=== PATIENT | male | born 1965 ===

== ENCOUNTER 2023-10-16 14:05 | Inpatient (IN) | payer OTHER ==
[2023-10-16] MEDS: SODIUM CHLORIDE 0.9% 1,000 ML IV ONE ×2 (14:26→16:10)
[2023-10-16] MEDS: SODIUM CHLORIDE 0.9% 500 ML 500 ML IV ONE (14:26)
--- NOTE | 2023-10-16 14:33 | ED ---
General Adult HPI - General Chief complaint: Alcohol Stated complaint: ETOH Time Seen by Provider: 10/16/23 14:10 Source: patient, RN notes reviewed, old records reviewed Mode of arrival: EMS Limitations: no limitations - History of Present Illness Initial comments: This is a 58-year-old male who presents to the emergency department stating that he fell off the wagon and started drinking again. Patient states his last drink was just before he came here. Patient states he started drinking again because his father and it really upset him. Patient states he would like help to stop drinking. Patient denies any chest pain difficulty breathing shortness of breath. Patient has any recent fever chills or cough. Patient [place] any abdominal pain patient has nausea vomiting or diarrhea. - Related Data Allergies Allergy/AdvReac Type Severity Reaction Status Date / Time No Known Allergies Allergy Verified 10/16/23 14:16 Review of Systems ROS Statement: Those systems with pertinent positive or pertinent negative responses have been documented in the HPI. ROS Other: All systems not noted in ROS Statement are negative. 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 Additional Past Surgical History / Comment(s): Hip surgery as a child. Past Psychological History: Depression Smoking Status: Never smoker Past Alcohol Use History: Daily, Heavy Past Drug Use History: None Reported General Exam - General Exam Comments Initial Comments: GENERAL: Patient is well-developed and well-nourished. Patient is nontoxic and well- hydrated and is in no acute distress. Patient does appear intoxicated ENT: Neck is soft and supple. No significant lymphadenopathy is noted. Oropharynx is clear. Moist mucous membranes. Neck has full range of motion without eliciting any pain. EYES: The sclera were anicteric and conjunctiva were pink and moist. Extraocular movements were intact and pupils were equal round and reactive to light. Eyelids were unremarkable. PULMONARY: Unlabored respirations. Good breath sounds bilaterally. No audible rales rhonchi or wheezing was noted. CARDIOVASCULAR: There is a regular rate and rhythm without any murmurs gallops or rubs. ABDOMEN: Soft and nontender with normal bowel sounds. SKIN: Skin is clear with no lesions or rashes and otherwise unremarkable. NEUROLOGIC: Patient is alert and oriented x3. Cranial nerves II through XII are grossly intact. Motor and sensory are also intact. Normal speech, volume and content. Symmetrical smile. MUSCULOSKELETAL: Normal extremities with adequate strength and full range of motion. LYMPHATICS: No significant lymphadenopathy is noted PSYCHIATRIC: Normal psychiatric evaluation. Limitations: no limitations Course Vital Signs 10/16/23 14:08 Temperature 98 F Respiratory 18 Rate Blood Pressure 158/83 O2 Sat by Pulse 98 Oximetry Medical Decision Making - Medical Decision Making Was pt. sent in by a medical professional or institution (, [facility], DIRECTOR DECISION SUPPORT, urgent care, hospital, or penitentiary...) When possible be specific @ -No Did you speak to anyone other than the patient for history (EMS, parent, family, police, friend...)? What history was obtained from this source @ -No Did you review nursing and triage notes (agree or disagree)? Why? @ -I reviewed and agree with nursing and triage notes Were old charts reviewed (outside hosp., previous admission, EMS record, old EKG, old radiological studies, urgent care reports/EKG's, penitentiary records)? Report findings @ -No old charts were reviewed Differential Diagnosis? @ -Alcohol abuse, alcohol withdrawal, alcohol intoxication, this is not an all- inclusive list EKG interpreted by me (3pts min.). @ -As above X-rays interpreted by me (1pt min.). @ -None done CT interpreted by me (1pt min.). @ -None done U/S interpreted by me (1pt. min.). @ -None done What testing was considered but not performed or refused? (CT, X-rays, U/S, labs)? Why? @ -None What meds were considered but not given or refused? Why? @ -None Did you discuss the management of the patient with other professionals (professionals i.e. , CYRIL, DIRECTOR DECISION SUPPORT, lab, RT, psych nurse, social worker school, lens grinder rough, teacher, medical scientific officer, case consultant)? Give summary @ -Sound physicians agreed to admit the patient Was smoking cessation discussed for >3mins.? @ -No Was critical care preformed (if so, how long)? @ -No Were there social determinants of health that impacted care today? How? (Homelessness, low income, unemployed, alcoholism, drug addiction, transportation, low edu. Level, literacy, decrease access to med. care, fdc, rehab)? @ -No Was there de-escalation of care discussed even if they declined (Discuss DNR or withdrawal of care, Hospice)? DNR status @ -No What co-morbidities impacted this encounter? (DM, HTN, Smoking, COPD, CAD, Cancer, CVA, ARF, Chemo, Hep., AIDS, mental health diagnosis, sleep apnea, morbid obesity)? @ -None Was patient admitted / discharged? Hospital course, mention meds given and route, prescriptions, significant lab abnormalities, going to OR and other pertinent info. @ -Patient was lower magnesium so I replaced it with 1 g of mag sulfate. Patient was intoxicated and will be admitted to [facility] physicians whom I spoke with. I wrote admitting orders Undiagnosed new problem with uncertain prognosis? @ -No Drug Therapy requiring intensive monitoring for toxicity (Heparin, Nitro, Ins ulin, Cardizem)? @ -No Were any procedures done? @ -No Diagnosis/symptom? @ -Alcohol intoxication Acute, or Chronic, or Acute on Chronic? @ -Acute Uncomplicated (without systemic symptoms) or Complicated (systemic symptoms)? @ -Complicated Side effects of treatment? @ -No Exacerbation, Progression, or Severe Exacerbation? @ -No Poses a threat to life or bodily function? How? (Chest pain, USA, CO, pneumonia, PE, COPD, DKA, ARF, appy, cholecystitis, CVA, Diverticulitis, Homicidal, Suicidal, threat to staff... and all critical care pts) @ -No - Lab Data Result diagrams: 10/16/23 14:22 10/16/23 14:22 Lab Results 10/16/23 10/16/23 Range/Units 14:22 14:22 WBC 7.4 (3.8-10.6) k/uL RBC 5.18 (4.30-5.90) m/uL Hgb 15.8 (13.0-17.5) gm/dL Hct 44.4 (39.0-53.0) % MCV 85.9 (80.0-100.0) fL MCH 30.6 (25.0-35.0) pg MCHC 35.6 (31.0-37.0) g/dL RDW 14.2 (11.5-15.5) % Plt Count 191 (150-450) k/uL MPV 10.6 Neutrophils % 71 % Lymphocytes % 21 % Monocytes % 5 % Eosinophils % 1 % Basophils % 1 % Neutrophils # 5.2 (1.3-7.7) k/uL Lymphocytes # 1.6 (1.0-4.8) k/uL Monocytes # 0.4 (0-1.0) k/uL Eosinophils # 0.0 (0-0.7) k/uL Basophils # 0.1 (0-0.2) k/uL Sodium 133 L (137-145) mmol/L Potassium 4.3 (3.5-5.1) mmol/L Chloride 96 L (98-107) mmol/L Carbon Dioxide 15 L (22-30) mmol/L Anion Gap 22 mmol/L BUN 8 L (9-20) mg/dL Creatinine 0.71 (0.66-1.25) mg/dL Est GFR (CKD-EPI)AfAm >90 (>60 ml/min/1.73 sqM) Est GFR (CKD-EPI)NonAf >90 (>60 ml/min/1.73 sqM) Glucose 78 (74-99) mg/dL Calcium 8.6 (8.4-10.2) mg/dL Magnesium 1.5 L (1.6-2.3) mg/dL Total Bilirubin 0.9 (0.2-1.3) mg/dL AST 83 H (17-59) U/L ALT 88 H (4-49) U/L Alkaline Phosphatase 68 (38-126) U/L Total Protein 7.7 (6.3-8.2) g/dL Albumin 4.8 (3.5-5.0) g/dL Serum Alcohol 334 H* mg/dL Disposition Clinical Impression: Alcoholic intoxication, Hypomagnesemia Disposition: ADMITTED IP TO THIS HOSP Referrals: None,Stated [Primary Care Provider] - 1-2 days Time of Disposition: 15:25
[2023-10-16 14:44] LABS: ALT 88 U/L (4-49); AST 83 U/L (17-59); African American GFR (CKD) >90 (>60 ml/min/1.73 sqM); Albumin 4.8 g/dL (3.5-5.0); Alkaline Phosphatase 68 U/L (38-126); Anion Gap 22 mmol/L; Blood Urea Nitrogen 8 mg/dL (9-20); Calcium 8.6 mg/dL (8.4-10.2); Carbon Dioxide 15 mmol/L (22-30); Chloride 96 mmol/L (98-107); Glucose 78 mg/dL (74-99); Magnesium 1.5 mg/dL (1.6-2.3); Non-African American GFR(CKD) >90 (>60 ml/min/1.73 sqM); Potassium 4.3 mmol/L (3.5-5.1); Sodium 133 mmol/L (137-145); Total Bilirubin 0.9 mg/dL (0.2-1.3); Total Protein 7.7 g/dL (6.3-8.2)
[2023-10-16 15:00] LABS: Alcohol 334 mg/dL
[2023-10-16 15:04] LABS: Basophils # (A) 0.1 k/uL (0-0.2); Basophils % (A) 1 %; Eosinophils % (A) 1 %; HCT 44.4 % (39.0-53.0); HGB 15.8 gm/dL (13.0-17.5); Lymphocytes # (A) 1.6 k/uL (1.0-4.8); Lymphocytes % (A) 21 %; MCH 30.6 pg (25.0-35.0); MCHC 35.6 g/dL (31.0-37.0); MCV 85.9 fL (80.0-100.0); Mean Platelet Volume 10.6; Monocytes # (A) 0.4 k/uL (0-1.0); Monocytes % (A) 5 %; Neutrophils # (A) 5.2 k/uL (1.3-7.7); Neutrophils % (A) 71 %; Platelet Count 191 k/uL (150-450); RBC 5.18 m/uL (4.30-5.90); RDW 14.2 % (11.5-15.5); WBC 7.4 k/uL (3.8-10.6)
[2023-10-16] MEDS: MAGNESIUM SULFATE-D5W PMX 1 GM in DEXTROSE/WATER 1 100ML.BAG IVPB ONE (16:10)
[2023-10-16] MEDS ORDERED: LORazepam 2 MG/ML INJ IV PRN (16:28)
[2023-10-16] MEDS: LORazepam 2 MG/ML INJ IV PRN ×2 (16:37→19:59)
--- NOTE | 2023-10-16 17:07 | P.HPIM ---
History of Present Illness H&P Date: 10/16/23 History of Presenting Illness: Patient is a 58-year-old male with a past medical history of alcoholism with history of ICU stays due to DTs, alcohol withdrawal seizures, and depression. He reports longstanding history of alcoholism and was sober but states his father on 10/08/2023 and he has since "fallen off the wagon" and has been drinking heavily every day. Patient reports drinking a minimum of 2 pints of whiskey daily along with 4 to 5 (24 ounce) cans of beer daily. Patient reports he knows he needs to stop, but states he is also aware of his history of previous ICU stays and alcohol withdrawal seizures and knows that he cannot stop on his own, so he came to the hospital for assistance with medical detox. Patient denies having any recent falls or injuries, headache, lightheadedness, dizziness, chest pain, palpitations, shortness of breath, cough or congestion, nausea, vomiting, abdominal pain, or experiencing any numbness/tingling/weakness/swelling in his extremities. Patient reports using chewing tobacco but denies smoking cigarettes, vaping, or any drug use. On arrival to our facility, patient underwent evaluation in the emergency departm ent. Vital signs upon arrival show blood pressure 158/83, heart rate 98, respiratory rate 18, temp 98.0 F, and SpO2 of 98% on room air. Labs completed and reviewed. CBC unremarkable. BMP showing hyponatremia with sodium of 133, hypochloremia with chloride of 96, and hypocarbia with bicarb of 22 and elevated anion gap of 22. Magnesium was low at 1.5. Liver profile showing elevated AST of 83 and ALT of 88. Blood alcohol level was 334. Patient admitted under our services for alcohol intoxication and assistance with medical detox. Review of systems: Pertinent positives and negatives as discussed in HPI, a complete review of systems was performed and all other systems are negative. Physical exam: Vital signs reviewed and stable. General: Nontoxic, no distress and appears stated age. Derm: Skin warm and dry, normal coloration for ethnicity. Head: Atraumatic, normocephalic and symmetric. Eyes: EOMs intact, no lid lag, and anicteric sclera Mouth: no lip lesions, mucus membranes moist Cardiovascular: regular rate and rhythm with normal S1S2, no murmur, positive posterior tibial pulses bilaterally, and cap refill < 2 seconds. Lungs: Respirations even, regular, and unlabored on room air. Lungs CTA bilaterally, no rhonchi, no rales, no wheezing, and no accessory muscle usage. Abdominal: soft, nontender to palpation, no guarding, no appreciable organomegaly Ext: ROM intact. No gross muscle atrophy, no edema, no contractures Neuro: Speech clear, face symmetrical and CN II-XII grossly intact with no noted focal neuro deficits Psych: Alert and oriented to person, place, time, and situation. Appropriate and pleasant affect. Assessment and Plan of Care: Alcohol intoxication with history of alcoholism History of alcohol withdrawal seizures and DTs Hypomagnesemia, secondary to alcohol abuse Elevated liver enzymes, secondary to alcohol abuse -Order placed for monitoring of CIWA scores and patient to be medicated with Ativan 0.5 mg every 4 hours as needed for CIWA score of 4-5, Ativan 1 mg every 4 hours for CIWA score of 6-7, Ativan 2 mg every 3 hours CIWA score of 8-9, and Ativan 2 mg every 2 hours forr CIWA score of 10 or greater. -Continuous IV hydration. -Thiamine 100 mg daily, and Multivitamin daily, and Folate 1 mg daily -Seizure, fall, aspiration, and elopement precautions in place. -Urine drug screen -Continued close monitoring of electrolytes and replace as needed. -Telemetry monitoring. Data and imaging reviewed: As stated above in HPI CODE STATUS: Full code DVT prophylaxis: Lovenox Anticipated discharge date: Pending clinical course Anticipated discharge place: Home Patient was seen independently by Nurse Practitioner. This document was prepared using [employer] dictation software. Please allow for errors in borderer while rare they do occur. Hiram Sprague NP rendered care for this patient independently, reviewed the findings and plan as documented in the note above. I did not physically speak with or examine the patient on this date. 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 Additional Past Surgical History / Comment(s): Hip surgery as a child. Past Psychological History: Depression Smoking Status: Never smoker Past Alcohol Use History: Daily, Heavy Past Drug Use History: None Reported - Past Family History Father Additional Family Medical History / Comment(s): CHF Medications and Allergies Home Medications Medication Instructions Recorded Confirmed Type No Known Home Medications 10/16/23 10/16/23 History Allergies Allergy/AdvReac Type Severity Reaction Status Date / Time No Known Allergies Allergy Verified 10/16/23 15:35 Physical Exam Vitals: Vital Signs Temp Resp BP Pulse Ox 10/16/23 14:08 98 F 18 158/83 98 Intake and Output 10/16/23 10/16/23 10/16/23 06:59 14:59 22:59 Other: Weight 77.111 kg Results CBC & Chem 7: 10/17/23 07:08 10/17/23 07:08 Labs: Abnormal Lab Results - Last 24 Hours (Table) 10/16/23 Range/Units 14:22 Sodium 133 L (137-145) mmol/L Chloride 96 L (98-107) mmol/L Carbon Dioxide 15 L (22-30) mmol/L BUN 8 L (9-20) mg/dL Magnesium 1.5 L (1.6-2.3) mg/dL AST 83 H (17-59) U/L ALT 88 H (4-49) U/L Serum Alcohol 334 H* mg/dL
[2023-10-16] MEDS: MAGNESIUM SULFATE-D5W PMX 1 GM in DEXTROSE/WATER 1 100ML.BAG IVPB SCH (17:09)
[2023-10-16] MEDS: THIAMINE 100 MG/ML 2 ML VIAL IM STA (18:34)
[2023-10-16] MEDS: LORazepam 0.5 MG TAB PO PRN (22:51)
[2023-10-17] MEDS: CALCIUM CARBONATE 500 MG CHEWABLE PO PRN (03:30)
[2023-10-17] MEDS: FOLIC ACID 1 MG TAB PO SCH (10:15)
[2023-10-17] MEDS: MULTIVITAMINS, THERA 1 EACH TAB PO SCH (10:15)
[2023-10-17] MEDS: ENOXAPARIN 40 MG/0.4 ML SYRINGE SQ SCH (10:16)
[2023-10-17] MEDS: THIAMINE 100 MG TAB PO SCH (10:16)
[2023-10-17 10:17] LABS: HCT 41.8 % (39.6-50.0); HGB 14.4 g/dL (13.0-17.0); MCH 29.6 pg (27.0-32.0); MCHC 34.4 g/dL (32.0-37.0); Mean Platelet Volume 11.9 FL (9.5-12.2); NRBC Per 100 WBC 0 X 10*3/uL (0.00-0.01); Platelet Count 164 X 10*3/uL (140-440); RBC 4.86 X 10*6/uL (4.40-5.60); RDW 13.9 % (11.5-14.5); WBC 7.97 X 10*3/uL (4.50-10.00)
[2023-10-17 10:29] LABS: ALT 80 U/L (10-49); AST 59 U/L (14-35); Albumin 4.2 g/dL (3.8-4.9); Albumin/Globulin Ratio 1.75 Ratio (1.60-3.17); Alkaline Phosphatase 67 U/L (41-126); Blood Urea Nitrogen 10.4 mg/dL (9.0-27.0); Calcium 8.3 mg/dL (8.7-10.3); Carbon Dioxide 22.2 mmol/L (21.6-31.8); Chloride 103 mmol/L (96-109); Globulin 2.4 g/dL (1.6-3.3); Glucose 94 mg/dL (70-110); Magnesium 2.1 mg/dL (1.5-2.4); Potassium 4.1 mmol/L (3.5-5.5); Sodium 140 mmol/L (135-145); Total Bilirubin 0.9 mg/dL (0.3-1.2); Total Protein 6.6 g/dL (6.2-8.2)
--- NOTE | 2023-10-17 13:58 | P.PN ---
Subjective Progress Note Date: 10/17/23 Hospital course:: Patient is a 58-year-old male with a past medical history of alcoholism with history of ICU stays due to DTs, alcohol withdrawal seizures, and depression. He reports longstanding history of alcoholism and was sober but states his father on 10/08/2023 and he has since "fallen off the wagon" and has been drinking heavily every day. Patient reports drinking a minimum of 2 pints of whiskey daily along with 4 to 5 (24 ounce) cans of beer daily. Patient r eports he knows he needs to stop, but states he is also aware of his history of previous ICU stays and alcohol withdrawal seizures and knows that he cannot stop on his own, so he came to the hospital for assistance with medical detox. Patient denies having any recent falls or injuries, headache, lightheadedness, dizziness, chest pain, palpitations, shortness of breath, cough or congestion, nausea, vomiting, abdominal pain, or experiencing any numbness/tingling/weakness/swelling in his extremities. Patient reports using chewing tobacco but denies smoking cigarettes, vaping, or any drug use. On arrival to our facility, patient underwent evaluation in the emergency department. Vital signs upon arrival show blood pressure 158/83, heart rate 98, respiratory rate 18, temp 98.0 F, and SpO2 of 98% on room air. Labs completed and reviewed. CBC unremarkable. BMP showing hyponatremia with sodium of 133, hypochloremia with chloride of 96, and hypocarbia with bicarb of 22 and elevated anion gap of 22. Magnesium was low at 1.5. Liver profile showing elevated AST of 83 and ALT of 88. Blood alcohol level was 334. Patient admitted under our services for alcohol intoxication and assistance with medical detox. Physical exam: Patient seen and fully evaluated at bedside this morning. He was mildly tremulous upon examination reports a mild headache. Vital signs reviewed and stable. General: Nontoxic, no distress and appears stated age. Derm: Skin warm and dry, normal coloration for ethnicity. Head: Atraumatic, normocephalic and symmetric. Eyes: EOMs intact, no lid lag, and anicteric sclera Mouth: no lip lesions, mucus membranes moist Cardiovascular: regular rate and rhythm with normal S1S2, no murmur, positive posterior tibial pulses bilaterally, and cap refill < 2 seconds. Lungs: Respirations even, regular, and unlabored on room air. Lungs CTA bilaterally, no rhonchi, no rales, no wheezing, and no accessory muscle usage. Abdominal: soft, nontender to palpation, no guarding, no appreciable organomegaly Ext: ROM intact. No gross muscle atrophy, no edema, no contractures Neuro: Speech clear, face symmetrical and CN II-XII grossly intact with no noted focal neuro deficits Psych: Alert and oriented to person, place, time, and situation. Appropriate and pleasant affect. Assessment and Plan of Care: Alcohol intoxication with history of alcoholism History of alcohol withdrawal seizures and DTs Hypomagnesemia, secondary to alcohol abuse Elevated liver enzymes, secondary to alcohol abuse -Continue monitoring of CIWA scores and patient to be medicated with Ativan 0.5 mg every 4 hours as needed for CIWA score of 4-5, Ativan 1 mg every 4 hours for CIWA score of 6-7, Ativan 2 mg every 3 hours CIWA score of 8-9, and Ativan 2 mg every 2 hours forr CIWA score of 10 or greater. Current CIWA score is 10. He has received a total of 5.5 mg of Ativan overnight. -Continue IV hydration. -Thiamine 100 mg daily, and Multivitamin daily, and Folate 1 mg daily -Seizure, fall, aspiration, and elopement precautions in place. -Urine drug screen -Continued close monitoring of electrolytes and replace as needed. -Telemetry monitoring. Data and imaging reviewed: CIWA score is 10. Morning labs reviewed. CBC unremarkable. BMP showing mildly elevated anion gap of 14.80 otherwise normal findings. Magnesium 2.1. Liver profile showing elevated AST of 59 and ALT of 80. Vital signs reviewed. Blood pressure 143/78, heart rate 58, respiratory rate 19, temp 98.5 F, and SpO2 of 93% on room air. CODE STATUS: Full code DVT prophylaxis: Lovenox Anticipated discharge date: Pending clinical course Anticipated discharge place: Home Patient was seen independently by Nurse Practitioner. This document was prepared using [employer] dictation software. Please allow for errors in apparel sales associate while rare they do occur. Hiram Sprague NP rendered care for this patient independently, reviewed the findings and plan as documented in the note above. I did not physically speak with or examine the patient on this date. Objective - Vital Signs Vital signs: Vital Signs Temp 98.7 F 07/05/24 01:30 Pulse 91 10/17/23 01:30 Resp 16 10/17/23 01:30 BP 178/66 10/17/23 01:30 Pulse Ox 93 L 10/17/23 01:30 FiO2 Intake & Output 10/16/23 10/17/23 10/17/23 18:59 06:59 18:59 Output Total 900 Balance -900 Weight 77.111 kg 77.111 kg Output: Urine 900 Other: Voiding Method Toilet Urinal - Labs CBC & Chem 7: 10/17/23 07:08 10/17/23 07:08 Labs: Abnormal Lab Results - Last 24 Hours (Table) 10/16/23 Range/Units 14:22 Sodium 133 L (137-145) mmol/L Chloride 96 L (98-107) mmol/L Carbon Dioxide 15 L (22-30) mmol/L BUN 8 L (9-20) mg/dL Magnesium 1.5 L (1.6-2.3) mg/dL AST 83 H (17-59) U/L ALT 88 H (4-49) U/L Serum Alcohol 334 H* mg/dL
[2023-10-17] MEDS: LORazepam 1 MG TAB PO PRN ×2 (14:50→20:28)
[2023-10-18] MEDS: KETOROLAC 15 MG/ML 1 ML VIAL IVP STA (10:23)
--- NOTE | 2023-10-18 17:08 | P.PN ---
Subjective Progress Note Date: 10/18/23 Hospital course:: Patient is a 58-year-old male with a past medical history of alcoholism with history of ICU stays due to DTs, alcohol withdrawal seizures, and depression. He reports longstanding history of alcoholism and was sober but states his father on 10/08/2023 and he has since "fallen off the wagon" and has been drinking heavily every day. Patient reports drinking a minimum of 2 pints of whiskey daily along with 4 to 5 (24 ounce) cans of beer daily. Patient r eports he knows he needs to stop, but states he is also aware of his history of previous ICU stays and alcohol withdrawal seizures and knows that he cannot stop on his own, so he came to the hospital for assistance with medical detox. Patient denies having any recent falls or injuries, headache, lightheadedness, dizziness, chest pain, palpitations, shortness of breath, cough or congestion, nausea, vomiting, abdominal pain, or experiencing any numbness/tingling/weakness/swelling in his extremities. Patient reports using chewing tobacco but denies smoking cigarettes, vaping, or any drug use. On arrival to our facility, patient underwent evaluation in the emergency department. Vital signs upon arrival show blood pressure 158/83, heart rate 98, respiratory rate 18, temp 98.0 F, and SpO2 of 98% on room air. Labs completed and reviewed. CBC unremarkable. BMP showing hyponatremia with sodium of 133, hypochloremia with chloride of 96, and hypocarbia with bicarb of 22 and elevated anion gap of 22. Magnesium was low at 1.5. Liver profile showing elevated AST of 83 and ALT of 88. Blood alcohol level was 334. Patient admitted under our services for alcohol intoxication and assistance with medical detox. Physical exam: Patient seen and fully evaluated at bedside this morning. He was mildly tremulous and diaphoretic at time of examination. Tremors seem to have improved but still present. Patient denies headache this morning and denies any other complaints at this time. Vital signs reviewed and stable. General: Nontoxic, no distress and appears stated age. Derm: Skin warm and dry, normal coloration for ethnicity. Head: Atraumatic, normocephalic and symmetric. Eyes: EOMs intact, no lid lag, and anicteric sclera Mouth: no lip lesions, mucus membranes moist Cardiovascular: regular rate and rhythm with normal S1S2, no murmur, positive posterior tibial pulses bilaterally, and cap refill < 2 seconds. Lungs: Respirations even, regular, and unlabored on room air. Lungs CTA bilaterally, no rhonchi, no rales, no wheezing, and no accessory muscle usage. Abdominal: soft, nontender to palpation, no guarding, no appreciable organomegaly Ext: ROM intact. No gross muscle atrophy, no edema, no contractures Neuro: Speech clear, face symmetrical and CN II-XII grossly intact with no noted focal neuro deficits Psych: Alert and oriented to person, place, time, and situation. Appropriate and pleasant affect. Assessment and Plan of Care: Alcohol intoxication with history of alcoholism History of alcohol withdrawal seizures and DTs Hypomagnesemia, secondary to alcohol abuse Elevated liver enzymes, secondary to alcohol abuse -Continue monitoring of CIWA scores and patient to be medicated with Ativan 0.5 mg every 4 hours as needed for CIWA score of 4-5, Ativan 1 mg every 4 hours for CIWA score of 6-7, Ativan 2 mg every 3 hours CIWA score of 8-9, and Ativan 2 mg every 2 hours forr CIWA score of 10 or greater. -Continue IV hydration. -Thiamine 100 mg daily, and Multivitamin daily, and Folate 1 mg daily -Seizure, fall, aspiration, and elopement precautions in place. -Urine drug screen -Continued close monitoring of electrolytes and replace as needed. -Telemetry monitoring. Data and imaging reviewed: Morning labs reviewed. CBC unremarkable. BMP showing mildly elevated anion gap of 14.80 otherwise normal findings. Magnesium 2.1. Liver profile showing elevated AST of 59 and ALT of 80. Vital signs reviewed. Blood pressure 163/75, heart rate 79, respiratory rate 18, temp 97.8 F, and SpO2 of 97% on room air. CODE STATUS: Full code DVT prophylaxis: Lovenox Anticipated discharge date: Pending clinical course Anticipated discharge place: Home Patient was seen independently by Nurse Practitioner. This document was prepared using [employer] dictation software. Please allow for errors in vp celebrity services while rare they do occur. I reviewed the documentation as provided by the MARY BETH above, who is the original author of this note. I agree with the documented assessment and plan, with the following changes: none Objective - Vital Signs Vital signs: Vital Signs Temp 97.8 F 10/18/23 07:43 Pulse 79 10/18/23 07:43 Resp 18 10/18/23 07:43 BP 163/75 10/18/23 07:43 Pulse Ox 97 10/18/23 07:43 FiO2 Intake & Output 10/17/23 10/18/23 10/18/23 18:59 06:59 18:59 Output Total 3 Balance -3 Output: Urine 3 Other: Voiding Method Toilet Toilet # Voids 3 2 - Labs CBC & Chem 7: 10/19/23 03:32 10/19/23 03:32 Labs: Abnormal Lab Results - Last 24 Hours (Table) 10/17/23 Range/Units 07:08 Anion Gap 14.80 H (4.00-12.00) mmol/L Calcium 8.3 L (8.7-10.3) mg/dL AST 59 H (14-35) U/L ALT 80 H (10-49) U/L
[2023-10-18 17:17] LABS: ALT 86 U/L (4-49); AST 93 U/L (17-59); African American GFR (CKD) >90 (>60 ml/min/1.73 sqM); Albumin 4.3 g/dL (3.5-5.0); Albumin/Globulin Ratio 1.5; Alkaline Phosphatase 75 U/L (38-126); Anion Gap 8 mmol/L; Basophils % (A) 1 %; Blood Urea Nitrogen 9 mg/dL (9-20); Carbon Dioxide 24 mmol/L (22-30); Chloride 100 mmol/L (98-107); Eosinophils # (A) 0.2 k/uL (0-0.7); Eosinophils % (A) 2 %; Globulin 2.9 g/dL; Glucose 114 mg/dL (74-99); HCT 43.6 % (39.0-53.0); HGB 14.5 gm/dL (13.0-17.5); Lymphocytes % (A) 11 %; MCH 29.6 pg (25.0-35.0); MCHC 33.2 g/dL (31.0-37.0); MCV 89.2 fL (80.0-100.0); Mean Platelet Volume 10.1; Monocytes # (A) 0.4 k/uL (0-1.0); Monocytes % (A) 4 %; Neutrophils # (A) 7.6 k/uL (1.3-7.7); Neutrophils % (A) 82 %; Non-African American GFR(CKD) >90 (>60 ml/min/1.73 sqM); Platelet Count 145 k/uL (150-450); Potassium 4.4 mmol/L (3.5-5.1); RBC 4.88 m/uL (4.30-5.90); RDW 13.8 % (11.5-15.5); Sodium 132 mmol/L (137-145); Total Bilirubin 1.1 mg/dL (0.2-1.3); Total Protein 7.2 g/dL (6.3-8.2); WBC 9.3 k/uL (3.8-10.6)
[2023-10-18] MEDS: NICOTINE 21MG/24HR PATCH TRANSDERM SCH (17:52)
[2023-10-19 07:31] VITALS: BP 147/83; PULSE 76; RESP 20; TEMP 98.4
[2023-10-19 09:56] LABS: Basophils # (A) 0.06 X 10*3/uL (0.00-0.10); Basophils % (A) 0.9 %; Eosinophils # (A) 0.24 X 10*3/uL (0.04-0.35); Eosinophils % (A) 3.5 %; HCT 42.3 % (39.6-50.0); HGB 14.6 g/dL (13.0-17.0); Lymphocytes # (A) 1.44 X 10*3/uL (0.90-5.00); Lymphocytes % (A) 21.1 %; MCH 29.5 pg (27.0-32.0); MCHC 34.5 g/dL (32.0-37.0); MCV 85.5 FL (80.0-97.0); Mean Platelet Volume 12.4 FL (9.5-12.2); Monocytes # (A) 0.39 X 10*3/uL (0.20-1.00); Monocytes % (A) 5.7 %; NRBC Per 100 WBC 0 X 10*3/uL (0.00-0.01); Neutrophils # (A) 4.68 X 10*3/uL (1.80-7.70); Neutrophils % (A) 68.4 %; Platelet Count 133 X 10*3/uL (140-440); RBC 4.95 X 10*6/uL (4.40-5.60); RDW 13.3 % (11.5-14.5); WBC 6.84 X 10*3/uL (4.50-10.00)
[2023-10-19 10:25] LABS: ALT 84 U/L (10-49); AST 60 U/L (14-35); Albumin 4.3 g/dL (3.8-4.9); Albumin/Globulin Ratio 1.65 Ratio (1.60-3.17); Alkaline Phosphatase 73 U/L (41-126); BUN/Creat Ratio 6.57 Ratio (12.00-20.00); Blood Urea Nitrogen 4.6 mg/dL (9.0-27.0); Calcium 8.9 mg/dL (8.7-10.3); Carbon Dioxide 21.7 mmol/L (21.6-31.8); Chloride 100 mmol/L (96-109); Globulin 2.6 g/dL (1.6-3.3); Glucose 116 mg/dL (70-110); Potassium 3.8 mmol/L (3.5-5.5); Sodium 136 mmol/L (135-145); Total Bilirubin 1.1 mg/dL (0.3-1.2); Total Protein 6.9 g/dL (6.2-8.2)
--- NOTE | 2023-10-19 10:50 | P.DS ---
Providers Date of admission: 10/16/23 15:25 Expected date of discharge: 10/19/23 Attending physician: Edwardo Fletcher MD Primary care physician: Stated None Hospital Course: Discharge Diagnosis: Alcohol withdraw Alcohol intoxication upon arrival with history of alcoholism History of alcohol withdrawal seizures and DTs Hypomagnesemia, secondary to alcohol abuse Thrombocytopenia, secondary to alcohol abuse Elevated liver enzymes, secondary to alcohol abuse Hospital Course: Patient is a 58-year-old male with a past medical history of alcoholism with history of ICU stays due to DTs, alcohol withdrawal seizures, and depression. He reports longstanding history of alcoholism and was sober but states his father on 10/08/2023 and he has since "fallen off the wagon" and has been drinking heavily every day. Patient reports drinking a minimum of 2 pints of whiskey daily along with 4 to 5 (24 ounce) cans of beer daily. Patient rep orts he knows he needs to stop, but states he is also aware of his history of previous ICU stays and alcohol withdrawal seizures and knows that he cannot stop on his own, so he came to the hospital for assistance with medical detox. Patient denies having any recent falls or injuries, headache, lightheadedness, dizziness, chest pain, palpitations, shortness of breath, cough or congestion, nausea, vomiting, abdominal pain, or experiencing any numbness/tingling/weakness/swelling in his extremities. Patient reports using chewing tobacco but denies smoking cigarettes, vaping, or any drug use. On arrival to our facility, patient underwent evaluation in the emergency department. Vital signs upon arrival show blood pressure 158/83, heart rate 98, respiratory rate 18, temp 98.0 F, and SpO2 of 98% on room air. Labs completed and reviewed. CBC unremarkable. BMP showing hyponatremia with sodium of 133, hypochloremia with chloride of 96, and hypocarbia with bicarb of 22 and elevated anion gap of 22. Magnesium was low at 1.5. Liver profile showing elevated AST of 83 and ALT of 88. Blood alcohol level was 334. Patient admitted under our services for alcohol intoxication and assistance with medical detox. Patient underwent 3 night hospital stay, Ativan needs significantly decreased patient has only received a total of 2 mg over the past 24 hours. Patient states he is ready for discharge and denies having any needs at this time. Patient strongly encouraged to avoid any and all alcohol use encouraged to follow-up outpatient with PCP in 1 to 2 days. Patient provided with outpatient community resources available to him including AA meetings, community resources, and outpatient counseling services. Physical exam: Vital signs reviewed and stable. General: Nontoxic, no distress and appears stated age. Derm: Skin warm and dry, normal coloration for ethnicity. Head: Atraumatic, normocephalic and symmetric. Eyes: EOMs intact, no lid lag, and anicteric sclera Mouth: no lip lesions, mucus membranes moist Cardiovascular: regular rate and rhythm with normal S1S2, no murmur, positive posterior tibial pulses bilaterally, and cap refill < 2 seconds. Lungs: Respirations even, regular, and unlabored on room air. Lungs CTA bilaterally, no rhonchi, no rales, no wheezing, and no accessory muscle usage. Abdominal: soft, nontender to palpation, no guarding, no appreciable organomegaly Ext: ROM intact. No gross muscle atrophy, no edema, no contractures Neuro: Speech clear, face symmetrical and CN II-XII grossly intact with no noted focal neuro deficits Psych: Alert and oriented to person, place, time, and situation. Appropriate and pleasant affect. A total of 33 minutes of time were spent preparing this complex discharge summary. Pt was discharged on 10/19/2023 at 10:47 AM. Patient was seen independently by Nurse Practitioner. This document was prepared using [employer] dictation software. Please allow for errors in dining room attendant while rare they do occur. I reviewed the documentation as provided by the MARY BETH above, who is the original author of this note. I agree with the documented assessment and plan, with the following changes: none Patient Condition at Discharge: Stable Plan - Discharge Summary Discharge Rx Participant: No New Discharge Prescriptions: New Folic Acid 1 mg PO DAILY 30 Days #30 tab Multivitamins, Thera [Multivitamin (formulary)] 1 each PO DAILY 30 Days #30 tab Thiamine [Vitamin B-1] 100 mg PO DAILY 30 Days #30 tab Discharge Medication List Folic Acid 1 mg PO DAILY 30 Days #30 tab 10/19/23 [Rx] Multivitamins, Thera [Multivitamin (formulary)] 1 each PO DAILY 30 Days #30 tab 10/19/23 [Rx] Thiamine [Vitamin B-1] 100 mg PO DAILY 30 Days #30 tab 10/19/23 [Rx] Follow up Appointment(s)/Referral(s): David Ceron MD [REFERRING] - 1-2 Days (Please call office first thing friday morning to schedule an appointment for follow up and to further discuss medications that may help you refrain from alcohol use, depression and anxiety.) Patient Instructions/Handouts: Grief and Loss (DC), Alcohol Withdrawal (GEN) Activity/Diet/Wound Care/Special Instructions: Activity: As tolerated. Take breaks as needed. Diet: Heart healthy and carb consistent diet. Avoid salts, or foods with hidden salts such as canned or boxed foods and frozen dinners. Extra salt makes your heart work harder and traps the fluid in your body for longer. Special Instructions: Take all of your medications as directed and remember to keep all of your doctor's appointments and follow-up as needed. Strongly recommending avoiding any and all alcohol use. I am very sorry for your loss, of a loved one can be a very traumatic experience. Strongly recommend avoiding alcohol use for self-medication as this can only make things more difficult for you, you have been provided with outpatient counseling resources and community resources available to you. Please follow-up and reach out for assistance if and when needed. Thank you for allowing us to participate in your care, it was truly a pleasure having you for our patient!!! Discharge/Stand Alone Forms: AA Reanna Ashton, Outpatient Counseling, Inp Substance Abuse Facilities, Area PCPs, Who Do I Call?, Community Resources Discharge Disposition: HOME SELF-CARE
== END 2023-10-19 11:40 | disposition home or self-care (01) | DRG 775 ==
LOC: EC 14:05 → 5NMEDONC 15:25 → 4SSUR 19:39
PROVIDERS: ADMIT Student in an Organized Health Care Education/Training Program; ATTEND Student in an Organized Health Care Education/Training Program
PROC: HZ2ZZZZ Detoxification Services for Substance Abuse Treatment (ICD-10-PCS; principal; 2023-10-16)
DX: F10.231 Alcohol dependence with withdrawal delirium (principal); F10.229 Alcohol dependence with intoxication, unspecified; E87.8 Other disorders of electrolyte and fluid balance, not elsewhere classified; E87.1 Hypo-osmolality and hyponatremia; E83.42 Hypomagnesemia; F32.A Depression, unspecified; Y90.8 Blood alcohol level of 240 mg/100 ml or more; Z82.49 Family history of ischemic heart disease and other diseases of the circulatory system; D69.59 Other secondary thrombocytopenia; R74.01 Elevation of levels of liver transaminase levels
CPT/HCPCS: 36415; 80053; 80320; 83735; 85025; 85027; 96361; 96365; 96366; 96372; 96375; 96376; 99285

== ENCOUNTER 2023-10-19 21:36 | Observation (INO) | payer OTHER ==
[2023-10-19] MEDS: LORazepam 2 MG/ML INJ IV STA (23:24)
[2023-10-19 23:51] LABS: Basophils # (A) 0.1 k/uL (0-0.2); Basophils % (A) 1 %; Eosinophils # (A) 0.2 k/uL (0-0.7); Eosinophils % (A) 2 %; HCT 45.2 % (39.0-53.0); Lymphocytes # (A) 1.8 k/uL (1.0-4.8); Lymphocytes % (A) 20 %; MCH 30.6 pg (25.0-35.0); MCHC 35.3 g/dL (31.0-37.0); MCV 86.6 fL (80.0-100.0); Mean Platelet Volume 11.2; Monocytes # (A) 0.5 k/uL (0-1.0); Monocytes % (A) 5 %; Neutrophils # (A) 6.5 k/uL (1.3-7.7); Neutrophils % (A) 71 %; Platelet Count 167 k/uL (150-450); RBC 5.22 m/uL (4.30-5.90); RDW 13.9 % (11.5-15.5); WBC 9.1 k/uL (3.8-10.6)
[2023-10-20 00:39] LABS: ALT 116 U/L (4-49); AST 90 U/L (17-59); African American GFR (CKD) >90 (>60 ml/min/1.73 sqM); Alcohol <10 mg/dL; Alkaline Phosphatase 70 U/L (38-126); Anion Gap 13 mmol/L; Blood Urea Nitrogen 14 mg/dL (9-20); Calcium 10.6 mg/dL (8.4-10.2); Carbon Dioxide 21 mmol/L (22-30); Chloride 103 mmol/L (98-107); Glucose 110 mg/dL (74-99); Magnesium 1.6 mg/dL (1.6-2.3); Non-African American GFR(CKD) 82 (>60 ml/min/1.73 sqM); Sodium 137 mmol/L (137-145); Total Bilirubin 1.2 mg/dL (0.2-1.3); Total Protein 8.2 g/dL (6.3-8.2)
[2023-10-20] MEDS: SODIUM CHLORIDE 0.9% 1,000 ML IV ONE (01:22)
[2023-10-20] MEDS ORDERED: LORazepam 2 MG/ML INJ IV PRN ×2 (01:23)
[2023-10-20] MEDS ORDERED: ONDANSETRON 4 MG/2 ML VIAL IVP PRN (01:27)
[2023-10-20] MEDS ORDERED: NALOXONE 0.4 MG/ML 1 ML VIAL IV PRN (01:27)
--- NOTE | 2023-10-20 01:31 | ED ---
General Adult HPI - General Chief complaint: Alcohol Stated complaint: Dizziness, ETOH Time Seen by Provider: 10/19/23 23:09 Source: patient, RN notes reviewed, old records reviewed Mode of arrival: ambulatory Limitations: no limitations - History of Present Illness Initial comments: 58-year-old male presenting with alcohol withdrawal. Patient was admitted to the hospital for withdrawal and discharged earlier today. He states that upon going home he felt quite anxious, paranoid. He also had nausea vomiting and felt lightheaded. He returned for further evaluation and treatment. - Related Data Previous Rx's Medication Instructions Recorded Folic Acid 1 mg PO DAILY 30 Days #30 tab 10/19/23 Multivitamins, Thera [Multivitamin 1 each PO DAILY 30 Days #30 tab 10/19/23 (formulary)] Thiamine [Vitamin B-1] 100 mg PO DAILY 30 Days #30 tab 10/19/23 Allergies Allergy/AdvReac Type Severity Reaction Status Date / Time No Known Allergies Allergy Verified 10/19/23 22:04 Review of Systems ROS Statement: Those systems with pertinent positive or pertinent negative responses have been documented in the HPI. ROS Other: All systems not noted in ROS Statement are negative. 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 History of Any Multi-Drug Resistant Organisms: None Reported Additional Past Surgical History / Comment(s): Hip surgery as a child. Past Anesthesia/Blood Transfusion Reactions: No Reported Reaction Past Psychological History: Depression Smoking Status: Never smoker Past Alcohol Use History: Daily, Heavy Past Drug Use History: None Reported - Past Family History Father Additional Family Medical History / Comment(s): CHF General Exam Limitations: no limitations General appearance: alert, anxious Head exam: Present: atraumatic, normocephalic Eye exam: Present: normal appearance, PERRL ENT exam: Present: normal exam Neck exam: Present: normal inspection. Absent: tenderness, meningismus Respiratory exam: Present: normal lung sounds bilaterally. Absent: respiratory distress, wheezes Cardiovascular Exam: Present: regular rate, normal rhythm GI/Abdominal exam: Present: soft Extremities exam: Present: normal inspection Neurological exam: Present: alert, oriented X3, CN II-XII intact Psychiatric exam: Present: anxious Skin exam: Present: warm, dry, intact. Absent: cyanosis, diaphoretic Course Vital Signs 07/11/0410/20/23 10/20/23 22:01 00:00 01:00 Temperature 98.7 F Pulse Rate 90 80 77 Respiratory 22 18 18 Rate Blood Pressure 141/88 140/66 O2 Sat by Pulse 98 99 97 Oximetry Medical Decision Making - Medical Decision Making Was pt. sent in by a medical professional or institution (, [facility], FINANCIAL RECRUITER, urgent care, hospital, or fci...) When possible be specific @ -No Did you speak to anyone other than the patient for history (EMS, parent, family, police, friend...)? What history was obtained from this source @ -No Did you review nursing and triage notes (agree or disagree)? Why? @ -I reviewed and agree with nursing and triage notes Were old charts reviewed (outside hosp., previous admission, EMS record, old EKG, old radiological studies, urgent care reports/EKG's, fci records)? Report findings @ -No old charts were reviewed Differential Diagnosis: Alcohol withdrawal, seizure, delirium tremens EKG interpreted by me (3pts min.). @ -As above X-rays interpreted by me (1pt min.). @ -None done CT interpreted by me (1pt min.). @ -None done U/S interpreted by me (1pt. min.). @ -None done What testing was considered but not performed or refused? (CT, X-rays, U/S, labs)? Why? @ -None What meds were considered but not given or refused? Why? @ -None Did you discuss the management of the patient with other professionals (professionals i.e. CYRIL Badillo, FINANCIAL RECRUITER, lab, RT, psych nurse, social professionals, multicultural services librarian, teacher, aoc plans intelligence officer chief, case resource manager)? Give summary @ -No Was smoking cessation discussed for >3mins.? @ -No Was critical care preformed (if so, how long)? @ -No Were there social determinants of health that impacted care today? How? (Homelessness, low income, unemployed, alcoholism, drug addiction, transportation, low edu. Level, literacy, decrease access to med. care, group home, rehab)? @ -No Was there de-escalation of care discussed even if they declined (Discuss DNR or withdrawal of care, Hospice)? DNR status @ -No What co-morbidities impacted this encounter? (DM, HTN, Smoking, COPD, CAD, Cancer, CVA, ARF, Chemo, Hep., AIDS, mental health diagnosis, sleep apnea, morbid obesity)? @ -[Alcohol abuse Was patient admitted / discharged? Hospital course, mention meds given and route, prescriptions, significant lab abnormalities, going to OR and other pertinent info. @ -58 male with alcohol withdrawal, tremor, anxiety, paranoia. Patient given benzodiazepines. Will be admitted for symptom management of alcohol withdrawal. Case discussed with Dr. Pearson who will admit Undiagnosed new problem with uncertain prognosis? @ -[No Drug Therapy requiring intensive monitoring for toxicity (Heparin, Nitro, Insulin, Cardizem)? @ -No Were any procedures done? @ -No Diagnosis/symptom? @Alcohol withdrawal Acute, or Chronic, or Acute on Chronic? @ -Acute Uncomplicated (without systemic symptoms) or Complicated (systemic symptoms)? @ -Default Side effects of treatment? @ -No Exacerbation, Progression, or Severe Exacerbation? @ -No Poses a threat to life or bodily function? How? (Chest pain, [place], [place], pneumonia, PE, COPD, DKA, ARF, appy, cholecystitis, CVA, Diverticulitis, Homicidal, Suicidal, threat to staff... and all critical care pts) @ -Yes, delirium tremens - Lab Data Result diagrams: 10/19/23 23:30 10/19/23 23:30 Lab Results 10/19/23 10/19/23 Range/Units 23:30 23:30 WBC 9.1 (3.8-10.6) k/uL RBC 5.22 (4.30-5.90) m/uL Hgb 16.0 (13.0-17.5) gm/dL Hct 45.2 (39.0-53.0) % MCV 86.6 (80.0-100.0) fL MCH 30.6 (25.0-35.0) pg MCHC 35.3 (31.0-37.0) g/dL RDW 13.9 (11.5-15.5) % Plt Count 167 (150-450) k/uL MPV 11.2 Neutrophils % 71 % Lymphocytes % 20 % Monocytes % 5 % Eosinophils % 2 % Basophils % 1 % Neutrophils # 6.5 (1.3-7.7) k/uL Lymphocytes # 1.8 (1.0-4.8) k/uL Monocytes # 0.5 (0-1.0) k/uL Eosinophils # 0.2 (0-0.7) k/uL Basophils # 0.1 (0-0.2) k/uL Sodium 137 (137-145) mmol/L Potassium 4.0 (3.5-5.1) mmol/L Chloride 103 (98-107) mmol/L Carbon Dioxide 21 L (22-30) mmol/L Anion Gap 13 mmol/L BUN 14 (9-20) mg/dL Creatinine 1.01 (0.66-1.25) mg/dL Est GFR (CKD-EPI)AfAm >90 (>60 ml/min/1.73 sqM) Est GFR (CKD-EPI)NonAf 82 (>60 ml/min/1.73 sqM) Glucose 110 H (74-99) mg/dL Calcium 10.6 H (8.4-10.2) mg/dL Magnesium 1.6 (1.6-2.3) mg/dL Total Bilirubin 1.2 (0.2-1.3) mg/dL AST 90 H (17-59) U/L ALT 116 H (4-49) U/L Alkaline Phosphatase 70 (38-126) U/L Total Protein 8.2 (6.3-8.2) g/dL Albumin 5.0 (3.5-5.0) g/dL Serum Alcohol <10 mg/dL Disposition Clinical Impression: Alcohol withdrawal syndrome Disposition: ADMITTED IP TO THIS [facility] Condition: Stable Is patient prescribed a controlled substance at d/c from ED?: No Referrals: None,Stated [Primary Care Provider] - 1-2 days Time of Disposition: 01:31
[2023-10-20] MEDS: SODIUM CHLORIDE 0.9% 1,000 ML IV SCH (02:41)
[2023-10-20] MEDS: LORazepam 2 MG/ML INJ IV PRN (02:45)
--- NOTE | 2023-10-20 06:48 | P.HPIM ---
History of Present Illness H&P Date: 10/20/23 Chief Complaint: alcohol withdrawal vomiting , shaking 58-year-old male with alcohol abuse and history of severe alcohol withdrawals with DTs and alcohol withdrawal seizures Patient last drink claims to be on he was discharged on October 18 back home he was planning to start drinking again however he started having severe shakes and nausea and vomiting for which she decided to come back to the hospital for evaluation he had very severe alcohol withdrawals in the past requiring ICU admissions and he was scared that he might go through severe withdrawal again. He currently admits to tactile hallucination denies any auditory or visual hallucinations Patient denies any chest pain trouble breathing fevers chills coughing denies any falls or head injury denies any abdominal pain or GI bleeding Patient denies smoking tobacco however he does not showing he denies any illicit drugs and admits to heavy alcohol use review of systems Pertinent positives as noted in HPI. All other systems were reviewed and are negative on exam Constitutional: No acute distress, Eyes: Anicteric sclerae, moist conjunctiva, Pupils equal round reactive to light ENMT: NC/AT Oropharynx clear, no erythema, or exudates Neck: Supple, no masses, or JVD No carotid bruits No thyromegaly Lungs: Clear to auscultation Clear to percussion Normal respiratory effort, no accessory muscle use Cardiovascular: Heart regular in rate and rhythm, No murmurs, gallops, or rubs No peripheral edema Abdominal: Soft Nontender, no guarding, rebound or rigidity Abdomen moving with respiration Normoactive bowel sounds Extremities: No digital cyanosis No clubbing Pedal pulses intact and symmetrical Radial pulses intact and symmetrical No calf tenderness Psychiatric: Alert and oriented to person, place and time Neuro Muscles Strength 5/5 in all 4 extremities Sensation to light touch grossly present throughout Cranial nerves II-XII grossly intact Past Medical History Past Medical History: Liver Disease Additional Past Medical History / Comment(s): benign 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 History of Any Multi-Drug Resistant Organisms: None Reported Additional Past Surgical History / Comment(s): Hip surgery as a child. Past Anesthesia/Blood Transfusion Reactions: No Reported Reaction Past Psychological History: Depression Smoking Status: Never smoker Past Alcohol Use History: Daily, Heavy Past Drug Use History: None Reported - Past Family History Father Additional Family Medical History / Comment(s): CHF Medications and Allergies Home Medications Medication Instructions Recorded Confirmed Type Folic Acid 1 mg PO DAILY 30 Days #30 tab 10/19/23 Rx Multivitamins, Thera [Multivitamin 1 each PO DAILY 30 Days #30 tab 10/19/23 Rx (formulary)] Thiamine [Vitamin B-1] 100 mg PO DAILY 30 Days #30 tab 10/19/23 Rx Allergies Allergy/AdvReac Type Severity Reaction Status Date / Time No Known Allergies Allergy Verified 10/19/23 22:04 Physical Exam Vitals: Vital Signs Temp Pulse Resp BP Pulse Ox 10/20/23 04:00 86 18 137/81 97 10/20/23 03:00 72 16 136/74 95 10/20/23 02:00 76 16 111/67 98 10/20/23 01:00 77 18 140/66 97 10/20/23 00:00 80 18 99 10/19/23 22:01 98.7 F 90 22 141/88 98 Intake and Output 10/19/23 10/19/23 10/20/23 14:59 22:59 06:59 Other: Weight 77.111 kg Results CBC & Chem 7: 10/19/23 23:30 10/19/23 23:30 Labs: Abnormal Lab Results - Last 24 Hours (Table) 10/19/23 Range/Units 23:30 Carbon Dioxide 21 L (22-30) mmol/L Glucose 110 H (74-99) mg/dL Calcium 10.6 H (8.4-10.2) mg/dL AST 90 H (17-59) U/L ALT 116 H (4-49) U/L Assessment and Plan Assessment: 58-year-old male with alcohol dependence with history of severe alcohol withdrawal was recently discharged from the hospital on October 18 yesterday where he was admitted for alcohol withdrawal symptoms however started having severe alcohol withdrawal symptoms at home with repeated nausea vomiting and severe shakes due to his history of severe DTs and requiring ICU he decided to come back to the hospital for help I discussed case with ED doctor and accepted the admission for severe alcohol withdrawal symptoms with anticipated length of stay more than 2 midnights Severe alcohol withdrawal symptoms and alcohol dependence patient Last drink was 3 days ago on October 15 Benzos per CIWA scale Thiamine 100 mg p.o. daily Seizure precautions Fall precautions IV fluid hydration with normal saline 100 cc/h Serum alcohol level less than 10 Transaminitis most likely secondary to alcohol abuse AST 90 ALT 116 elevated Alkaline phosphatase 70 unremarkable Continue to monitor and trend down Blood work showing white count 9.1 hemoglobin 16 platelets 167 unremarkable Renal function showing sodium 137 potassium 4 BUN 14 creatinine 1 unremarkable Full code DVT prophylaxis Lovenox subcu 40 mg daily GI prophylaxis Protonix 40 mg p.o. twice daily
[2023-10-20] MEDS ORDERED: LORazepam 0.5 MG TAB PO PRN (07:46)
[2023-10-20] MEDS: ENOXAPARIN 40 MG/0.4 ML SYRINGE SQ SCH (08:22)
[2023-10-20] MEDS: PANTOPRAZOLE 40 MG TABLET PO SCH (08:22)
[2023-10-20] MEDS: THIAMINE 100 MG TAB PO SCH (08:22)
[2023-10-20] MEDS: MULTIVITAMINS, THERA 1 EACH TAB PO SCH (08:24)
[2023-10-20] MEDS: FOLIC ACID 1 MG TAB PO SCH (08:24)
--- NOTE | 2023-10-20 11:34 | P.PN ---
Subjective Progress Note Date: 10/20/23 Hospital course: Patient is a 58-year-old male with a past medical history of alcoholism with history of ICU stays due to DTs, alcohol withdrawal seizures, and depression. He recently underwent hospitalization from 10/16/2023 through 10/19/2023 after binge drinking heavily for a week. He returned to the emergency department 10/20/2023 secondary to reports of symptoms of withdrawal with nausea, vomiting, and tremors. To our facility, patient underwent evaluation in the emergency depar tment. Vital signs upon arrival show blood pressure 158/83, heart rate 73, respiratory rate 18, temp 98.0 F, and SpO2 of 98% on room air. Labs completed and reviewed. CBC was unremarkable. BMP showing mild hypocarbia with bicarb of 21 otherwise normal findings. Blood glucose was 110. Calcium was slightly elevated at 10.6. Liver profile showing elevated AST of 90 and ALT of 116. Magnesium slightly low at 1.6. Blood alcohol level was less than 10. Patient was admitted under our services at this time. Physical exam: Vital signs reviewed and stable. General: Nontoxic, no distress and appears stated age. Derm: Skin warm and normal coloration for ethnicity. Slightly diaphoretic. Head: Atraumatic, normocephalic and symmetric. Eyes: EOMs intact, no lid lag, and anicteric sclera Mouth: no lip lesions, mucus membranes moist Cardiovascular: regular rate and rhythm with normal S1S2, no murmur, positive posterior tibial pulses bilaterally, and cap refill < 2 seconds. Lungs: Respirations even, regular, and unlabored on room air. Lungs CTA bilaterally, no rhonchi, no rales, no wheezing, and no accessory muscle usage. Abdominal: soft, nontender to palpation, no guarding, no appreciable organomegaly Ext: ROM intact. No gross muscle atrophy, no edema, no contractures Neuro: Speech clear, face symmetrical and CN II-XII grossly intact with no noted focal neuro deficits Psych: Alert and oriented to person, place, time, and situation. Appropriate and pleasant affect. Assessment and Plan of Care: Alcohol withdraw with symptoms of DTs. History of alcohol withdrawal seizures and DTs Hypomagnesemia, secondary to alcohol abuse Elevated liver enzymes, secondary to alcohol abuse -Continue monitoring of CIWA scores and patient to be medicated with Ativan 0.5 mg every 4 hours as needed for CIWA score of 4-5, Ativan 1 mg every 4 hours for CIWA score of 6-7, Ativan 2 mg every 3 hours CIWA score of 8-9, and Ativan 2 mg every 2 hours forr CIWA score of 10 or greater. -Continue IV hydration with 0.9% normal saline at 100 cc/h. -Thiamine 100 mg daily, and Multivitamin daily, and Folate 1 mg daily -Seizure, fall, aspiration, and elopement precautions in place. -Continue GI prophylaxis with Protonix 40 mg twice daily. -Continued close monitoring of electrolytes and replace as needed. -Telemetry monitoring. Data and imaging reviewed: Morning labs reviewed. CBC was unremarkable. BMP showing mild hypocarbia with bicarb of 21 otherwise normal findings. Blood glucose was 110. Calcium was slightly elevated at 10.6. Liver profile showing elevated AST of 90 and ALT of 116. Magnesium slightly low at 1.6. Orders placed for Mag-Ox 400 mg p.o. x 1 dose. Vital signs reviewed. Blood pressure 145/82, heart rate 81, respiratory rate 17, temp 98.3 F, and SpO2 of 100% on room air. CODE STATUS: Full code DVT prophylaxis: Lovenox Anticipated discharge date: Likely within the next [address]: Home Patient was seen independently by Nurse Practitioner. This document was prepared using [employer] dictation software. Please allow for errors in surveyor hydrographic while rare they do occur. . I reviewed the documentation as provided by the MARY BETH above, who is the original author of this note. I agree with the documented assessment and plan, with the following changes: none Objective - Vital Signs Vital signs: Vital Signs Temp 98.7 F 10/19/23 22:01 Pulse 86 10/20/23 04:00 Resp 18 10/20/23 04:00 BP 137/81 10/20/23 04:00 Pulse Ox 97 10/20/23 04:00 FiO2 Intake & Output 10/19/23 10/20/23 10/20/23 18:59 06:59 18:59 Weight 77.111 kg - Labs CBC & Chem 7: 10/19/23 23:30 10/19/23 23:30 Labs: Abnormal Lab Results - Last 24 Hours (Table) 10/19/23 Range/Units 23:30 Carbon Dioxide 21 L (22-30) mmol/L Glucose 110 H (74-99) mg/dL Calcium 10.6 H (8.4-10.2) mg/dL AST 90 H (17-59) U/L ALT 116 H (4-49) U/L
[2023-10-20] MEDS: MAGNESIUM OXIDE 400 MG TAB PO STA (17:11)
[2023-10-20] MEDS: LORazepam 1 MG TAB PO PRN (22:10)
[2023-10-21 01:47] VITALS: RESP 16
[2023-10-21 07:07] VITALS: BP 145/80; PULSE 70; TEMP 98.3
--- NOTE | 2023-10-21 10:51 | P.DS ---
Providers Date of admission: 10/20/23 01:27 Expected date of discharge: 10/21/23 Attending physician: Lawson Rain MD Primary care physician: Stated None Hospital Course: Discharge Diagnosis: Alcohol withdraw History of alcoholism History of alcohol withdrawal seizures and DTs Hypomagnesemia, secondary to alcohol abuse Thrombocytopenia, secondary to alcohol abuse Elevated liver enzymes, secondary to alcohol abuse Hospital course: Patient is a 58-year-old male with a past medical history of alcoholism with history of ICU stays due to DTs, alcohol withdrawal seizures, and depression. He recently underwent hospitalization from 10/16/2023 through 10/19/2023 after binge drinking heavily for a week. He returned to the emergency department 10/20/2023 secondary to reports of symptoms of withdrawal with nausea, vomiting, and tremors. To our facility, patient underwent evaluation in the emergency department. Vital signs upon arrival show blood pressure 158/83, heart rate 73, respiratory rate 18, temp 98.0 F, and SpO2 of 98% on room air. Labs completed and reviewed. CBC was unremarkable. BMP showing mild hypocarbia with bicarb of 21 otherwise normal findings. Blood glucose was 110. Calcium was slightly elevated at 10.6. Liver profile showing elevated AST of 90 and ALT of 116. Magnesium slightly low at 1.6. Blood alcohol level was less than 10. Patient was admitted under our services at this time. His was placed on CIWA protocol with benzodiazepines be administered as needed for signs/symptoms of withdrawal. Patient has had a total of 3 mg of Ativan over the past 24 hours and has not had any Ativan overnight. His current CIWA score is 0. Patient reports feeling much better states he only returned to the emergency department because he was feeling extremely anxious and knew if he did not come in he was going to have a drink of alcohol. Patient strongly encouraged to follow-up outpatient with PCP provided with outpatient community resources available to him. Patient discharged home with hydroxyzine 25 mg to be taken 4 times daily as needed for anxiety. Patient strongly encouraged to avoid any and all alcohol use. Physical exam: Vital signs reviewed and stable. General: Nontoxic, no distress and appears stated age. Derm: Skin warm and normal coloration for ethnicity. Slightly diaphoretic. Head: Atraumatic, normocephalic and symmetric. Eyes: EOMs intact, no lid lag, and anicteric sclera Mouth: no lip lesions, mucus membranes moist Cardiovascular: regular rate and rhythm with normal S1S2, no murmur, positive posterior tibial pulses bilaterally, and cap refill < 2 seconds. Lungs: Respirations even, regular, and unlabored on room air. Lungs CTA b ilaterally, no rhonchi, no rales, no wheezing, and no accessory muscle usage. Abdominal: soft, nontender to palpation, no guarding, no appreciable organomegaly Ext: ROM intact. No gross muscle atrophy, no edema, no contractures Neuro: Speech clear, face symmetrical and CN II-XII grossly intact with no noted focal neuro deficits Psych: Alert and oriented to person, place, time, and situation. Appropriate and pleasant affect. A total of 31 minutes of time were spent preparing this complex discharge summary. Pt was discharged on 10/21/2023 at 10:50 AM Patient was seen independently by Nurse Practitioner. This document was prepared using [employer] dictation software. Please allow for errors in hr assistant while rare they do occur. Patient Condition at Discharge: Stable Plan - Discharge Summary Discharge Rx Participant: No New Discharge Prescriptions: New hydrOXYzine HCL [Atarax] 25 mg PO QID PRN #60 tab PRN Reason: Anxiety Discharge Medication List hydrOXYzine HCL [Atarax] 25 mg PO QID PRN #60 tab 10/21/23 [Rx] Follow up Appointment(s)/Referral(s): David Ceron MD [REFERRING] - 1 Week Patient Instructions/Handouts: Abuse of Alcohol (DC), At-Risk Alcohol Use (DC), Alcohol Withdrawal (DC) Activity/Diet/Wound Care/Special Instructions: Activity: As tolerated. Take breaks as needed. Diet: Heart healthy and carb consistent diet. Avoid salts, or foods with hidden salts such as canned or boxed foods and frozen dinners. Extra salt makes your heart work harder and traps the fluid in your body for longer. Special Instructions: Take all of your medications as directed and remember to keep all of your doctor's appointments and follow-up as needed. Strongly recommending avoiding any and all alcohol use. Thank you for allowing us to participate in your care, it was truly a pleasure having you for our patient!!! . Discharge/Stand Alone Forms: AA Meetings [facility] 24 - [facility], AA Meetings [place], Who Do I Call?, Community Resources, Outpatient Counseling, In Substance Abuse Facilities, Area PCPs Discharge Disposition: HOME SELF-CARE
== END 2023-10-21 11:50 | disposition home or self-care (01) ==
LOC: EC 21:36 → 6NMEDSUR 10-20 01:27
PROVIDERS: ADMIT Internal Medicine; ATTEND Internal Medicine
DX: R42 Dizziness and giddiness (principal); F10.929 Alcohol use, unspecified with intoxication, unspecified; F32.A Depression, unspecified; E83.42 Hypomagnesemia; D69.59 Other secondary thrombocytopenia; Z82.49 Family history of ischemic heart disease and other diseases of the circulatory system; Y90.0 Blood alcohol level of less than 20 mg/100 ml
CPT/HCPCS: 96372 ×2; 96376; 96361; 96374; 99285; 36415; 80053; 83735; 85025; G0378 ×2; G0480; J2060 ×2; J1650 ×2; 80320